=== PATIENT | male | born 1970 | race Two or more races ===

== ENCOUNTER 2020-02-28 11:35 | Emergency (ER) | payer OTHER ==
[~2020-02-28] VITALS: Ht 165.1 cm; Wt 76.0 kg
[2020-02-28 11:39] VITALS: BP 148/94
[2020-02-28] MEDS ORDERED: LIDOCAINE-MPF 1%, 5ML ONE (12:23)
[2020-02-28] MEDS ORDERED: NEOSPORIN OINT. PKT 1 PACKET ONE ×2 (12:23→13:17)
[2020-02-28] MEDS ORDERED: DIPH,PERTUSS(ACELL),TET VAC/PF 0.5 ML IM-VACC ONE ×2 (12:24→12:30)
[2020-02-28] MEDS ORDERED: LIDOCAINE-MPF 1%, 5ML INFIL ONE (12:30)
--- NOTE | 2020-02-28 13:30 | NUR ---
CHAR CONVEYOR TENDER CELLAR IN TO PLACE DRESSING ON WOUND
== END 2020-02-28 14:25 | disposition home or self-care (01) ==
LOC: ED 14:05
DX: S61.011A Laceration without foreign body of right thumb without damage to nail, initial encounter (principal); W45.8XXA Other foreign body or object entering through skin, initial encounter; Y93.89 Activity, other specified; Y92.69 Other specified industrial and construction area as the place of occurrence of the external cause; Y99.0 Civilian activity done for income or pay
CPT/HCPCS: 64450; 90471; 90715; 99284

== ENCOUNTER 2020-05-02 09:51 | Emergency (ER) | payer OTHER ==
[~2020-05-02] VITALS: Ht 165.1 cm; Wt 74.3 kg
[2020-05-02 09:54] VITALS: BP 150/88
== END 2020-05-02 10:42 | disposition home or self-care (01) ==
LOC: ED 10:29
DX: S61.011D Laceration without foreign body of right thumb without damage to nail, subsequent encounter (principal); M79.2 Neuralgia and neuritis, unspecified; M79.644 Pain in right finger(s); X58.XXXD Exposure to other specified factors, subsequent encounter
CPT/HCPCS: 99281